=== PATIENT | male | born 1970 | race African-American/Black ===

== ENCOUNTER 2016-06-20 12:19 | Inpatient (IN) | payer OTHER ==
[2016-06-20 13:28] VITALS: BMI 43.4
[2016-06-20] MEDS ORDERED: ACETAMINOPHEN 325 MG TABLET (FP) PO PRN (13:54)
[2016-06-20] MEDS ORDERED: LOPERAMIDE HCL 2 MG CAPSULE PO PRN (13:54)
[2016-06-20] MEDS ORDERED: guaiFENesin/D-METHORPHAN HB 10 ML UNIT-DOSE CUPS PO PRN (13:54)
[2016-06-20] MEDS ORDERED: hydrOXYzine PAMOATE 25 MG CAPSULE (FP) PO PRN (13:54)
[2016-06-20] MEDS ORDERED: P-EPHED 60MG/TRIPROLIDI 2.5MG TABLET PO PRN (13:54)
[2016-06-20] MEDS ORDERED: MENTHOL/PHENOL 1 EACH UD MM PRN (13:54)
[2016-06-20] MEDS ORDERED: chlordiazePOXIDE HCL 25 MG CAPSULE PO PRN (13:54)
[2016-06-20] MEDS ORDERED: MAGNESIUM CITRATE 300 ML BOTTLE PO PRN (13:54)
[2016-06-20] MEDS ORDERED: MAGNESIUM HYDROX 2400MG/30ML ORAL SUSPENSION 30 ML CUP PO PRN (13:54)
[2016-06-20] MEDS ORDERED: MAG HYDROX/AL HYDROX/SIMETH 30 ML UNIT-DOSE CUP PO PRN (13:54)
[2016-06-20] MEDS ORDERED: IBUPROFEN 400 MG TABLET (FP) PO PRN (13:54)
[2016-06-20] MEDS ORDERED: ALBUTEROL SO4 6.7 GM HFA INHALER IH PRN (14:00)
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
--- NOTE | 2016-06-20 16:22 | CONSULT ---
[facility] Psychiatric Consult - Data Date of interview: 06/20/16 Admission source: [facility] Identifying data: This is 45 years old male with history of Bipolar disorder intoxicated with: Al;cohol, Cocaine and Cannabis Substance Abuse History: - Smoking Cessation. Smoking history: Current every day smoker. Have you smoked in the past 12 months: Yes. Aproximately how many cigarettes per day: 10. Cigars Per Day: 0. Hx Chewing Tobacco Use: No. Initiated information on smoking cessation: Yes. 'Breaking Loose' booklet given : 06/20/16. - Substance & Tx. History. Hx Alcohol Use: Yes. Hx Substance Use : Yes. Substance Use Type: Alcohol, Cocaine, Marijuana. Hx Substance Use Treatment: Yes. - Substances Abused. Alcohol. Route: Oral. Frequency: Daily. Amount used: 5 -24 OZ BEERS. Age of first use: 4. Date of Last Use: . Cocaine. Route: Smoking. Frequency: 1-2 times per week. Amount used: 1 GRAM. Age of first use: 23. Date of Last Use: 06/17/16. Marijuana/ Hashish. Route: Smoking. Frequency: Daily. Amount used: 1/2 OUNCE. Age of first use: 4. Date of Last Use: 06/19/16 Medical History: Obesity, GERD, HTN, Psychiatric History: Patient reports to carry Bipolar dsiorder with only psychiatric hospitalization on more then 10 years ago, reports currently stavble on: Seroquel 300mg po qhys. Risperdal 3mg po biud. Zoloft 50mg po bid Physical/Sexual Abuse/Trauma History: Denies Additional Comment: Seroquel 300mg po qhys. Risperdal 3mg po biud. Zoloft 50mg po bid Mental Status Exam - Mental Status Exam Alert and Oriented to: Person Cognitive Function: Fair Patient Appearance: Unkempt Mood: Anxious Affect: Mood Congruent Patient Behavior: Cooperative Speech Pattern: Appropriate Voice Loudness: Normal Thought Process: Goal Oriented Thought Disorder: Being Controlled Hallucinations: Denies Suicidal Ideation: Denies Homicidal Ideation: Denies Insight/Judgement: Fair Sleep: Difficulty falling asleep Appetite: Weight gain Muscle strength/Tone: Normal Gait/Station: Normal Additional Comments: Seroquel 300mg po qhys. Risperdal 3mg po biud. Zoloft 50mg po bid Psychiatric Findings - Problem List ([place] 1, 2,3) (1) Alcohol dependence Current Visit: Yes Status: Chronic Qualifiers: Substance use status: uncomplicated Qualified Code(s): F10.20 - Alcohol dependence, uncomplicated (2) Bipolar disorder Current Visit: Yes Status: Chronic Qualifiers: Active/Remission status: currently active Current episode severity: unspecified (3) Cocaine dependence Current Visit: Yes Status: Chronic Qualifiers: Substance use status: uncomplicated Qualified Code(s): F14.20 - Cocaine dependence, uncomplicated (4) Marijuana dependence Current Visit: Yes Status: Chronic (5) Nicotine dependence Current Visit: Yes Status: Chronic Qualifiers: Nicotine product type: cigarettes Substance use status: uncomplicated Qualified Code(s): F17.210 - Nicotine dependence, cigarettes, uncomplicated - Initial Treatment Plan Initial Treatment Plan: Seroquel 300mg po qhys. Risperdal 3mg po biud. Zoloft 50mg po bid
[2016-06-20] MEDS: chlordiazePOXIDE HCL 25 MG CAPSULE PO SCH ×2 (16:27→22:05)
[2016-06-20 17:51] LABS: URINE APPEARANCE CLEAR; URINE BILIRUBIN NEGATIVE (NEGATIVE); URINE BLOOD NEGATIVE (NEGATIVE); URINE COLOR LTYELLOW; URINE GLUCOSE (UA) NEGATIVE (NEGATIVE); URINE KETONE NEGATIVE (NEGATIVE); URINE LEUK ESTERASE NEGATIVE (NEGATIVE); URINE NITRITE NEGATIVE (NEGATIVE); URINE PROTEIN NEGATIVE (NEGATIVE); URINE UROBILINOGEN NEGATIVE E.U./dl (0.2-1.0)
[2016-06-20] MEDS: THIAMINE HCL 100 MG TABLET (FP) PO SCH (22:04)
[2016-06-20] MEDS: RANITIDINE HCL 150 MG TABLET (FP) PO SCH (22:05)
[2016-06-20] MEDS: SERTRALINE HCL 50 MG TABLET (FP) PO SCH (22:05)
[2016-06-20] MEDS: QUEtiapine FUMARATE 300 MG TABLET PO SCH (22:05)
[2016-06-20] MEDS: risperiDONE 1 MG TABLET (FP) PO SCH (22:05)
[2016-06-20] MEDS: NICOTINE POLACRILEX 4 MG GUM BUC PRN (22:08)
[2016-06-21] MEDS: chlordiazePOXIDE HCL 25 MG CAPSULE PO SCH ×4 (05:47→22:07)
[2016-06-21] MEDS: NICOTINE POLACRILEX 4 MG GUM BUC PRN ×3 (05:50→17:08)
[2016-06-21 10:13] LABS: MCH 27.3 pg (25.7-33.7); MCHC 32.4 g/dl (32.0-35.9); MEAN CELL VOLUME 84.3 fl (80-96); MEAN PLT VOLUME 8.6 fl (7.5-11.1); PLATELET COUNT 187 K/MM3 (134-434); RDW 15.6 % (11.9-15.9); WHITE BLOOD COUNT 12.2 K/mm3 (4.0-10.0)
[2016-06-21] MEDS: PRENATAL VITAMINS W/ FOLIC ACID TABLET (FP) PO SCH (10:14)
[2016-06-21] MEDS: RANITIDINE HCL 150 MG TABLET (FP) PO SCH ×2 (10:14→22:07)
[2016-06-21] MEDS: SERTRALINE HCL 50 MG TABLET (FP) PO SCH ×2 (10:14→22:54)
[2016-06-21] MEDS: risperiDONE 1 MG TABLET (FP) PO SCH ×2 (10:15→22:08)
[2016-06-21] MEDS: NICOTINE 21 MG/24 HOURS TOPICAL PATCH TD SCH (10:18)
[2016-06-21 10:36] LABS: ALBUMIN 3.8 g/dl (3.4-5.0); ALK PHOS 79 U/L (45-117); ANION GAP 6 (8-16); BILIRUBIN,TOTAL 0.3 mg/dL (0.2-1.0); CALCIUM 8.9 mg/dL (8.5-10.1); CO2 30 mmol/L (21-32); CREATININE 1.1 mg/dL (0.7-1.3); GLUCOSE,RANDOM 109 mg/dL (74-106); SGOT/AST 19 U/L (15-37); SGPT/ALT 37 U/L (12-78); TOT PROT 6.5 g/dl (6.4-8.2)
--- NOTE | 2016-06-21 11:15 | PN ---
[facility] CIWA - CIWA Score Nausea/Vomitin-Mild Nausea/No Vomiting Muscle Tremors: 4-Moderate,w/Arms Extend Anxiety: 3 Agitation: 1-Slight > Activity Paroxysmal Sweats: 3 Orientation: 0-Oriented Tacttile Disturbances: 2-Mild Itch/Numbness/Burn Auditory Disturbances: 0-None Visual Disturbances: 2-Mild Sensitivity Headache: 0-None Present CIWA-Ar Total Score: 16 BHS Progress Note (SOAP) Subjective: Sweating, Tremors. Objective: PT. A & O x 3, OBSERVED AMBULATING ON UNIT. 06/21/16 11:12 Vital Signs Temperature 97.7 F 06/21/16 09:32 Pulse Rate 80 06/21/16 09:32 Respiratory Rate 20 06/21/16 09:32 Blood Pressure 120/80 06/21/16 09:32 O2 Sat by Pulse Oximetry (%) Laboratory Last Values WBC 12.2 K/mm3 (4.0-10.0) H 06/21/16 06:00 RBC 5.15 M/mm3 (4.00-5.60) 06/21/16 06:00 Hgb 14.0 GM/dL (11.7-16.9) 06/21/16 06:00 Hct 43.4 % (35.4-49) 06/21/16 06:00 MCV 84.3 fl (80-96) 06/21/16 06:00 MCHC 32.4 g/dl (32.0-35.9) 06/21/16 06:00 RDW 15.6 % (11.9-15.9) 06/21/16 06:00 Plt Count 187 K/MM3 (134-434) 06/21/16 06:00 MPV 8.6 fl (7.5-11.1) 06/21/16 06:00 Sodium 144 mmol/L (136-145) 06/21/16 06:00 Potassium 3.9 mmol/L (3.5-5.1) 06/21/16 06:00 Chloride 108 mmol/L (98-107) H 06/21/16 06:00 Carbon Dioxide 30 mmol/L (21-32) D 06/21/16 06:00 Anion Gap 6 (8-16) L 06/21/16 06:00 BUN 16 mg/dL (7-18) 06/21/16 06:00 Creatinine 1.1 mg/dL (0.7-1.3) 06/21/16 06:00 Creat Clearance w eGFR > 60 (>60) 06/21/16 06:00 Random Glucose 109 mg/dL (74-106) H 06/21/16 06:00 Calcium 8.9 mg/dL (8.5-10.1) 06/21/16 06:00 Total Bilirubin 0.3 mg/dL (0.2-1.0) 06/21/16 06:00 AST 19 U/L (15-37) 06/21/16 06:00 ALT 37 U/L (12-78) 06/21/16 06:00 Alkaline Phosphatase 79 U/L (45-117) 06/21/16 06:00 Total Protein 6.5 g/dl (6.4-8.2) 06/21/16 06:00 Albumin 3.8 g/dl (3.4-5.0) 06/21/16 06:00 Urine Color Ltyellow 06/20/16 17:00 Urine Appearance Clear 06/20/16 17:00 Urine pH 5.0 (5.0-8.0) 06/20/16 17:00 Ur Specific [place] 1.013 (1.001-1.035) 06/20/16 17:00 Urine Protein Negative (NEGATIVE) 06/20/16 17:00 Urine Glucose (UA) Negative (NEGATIVE) 06/20/16 17:00 Urine Ketones Negative (NEGATIVE) 06/20/16 17:00 Urine Blood Negative (NEGATIVE) 06/20/16 17:00 Urine Nitrite Negative (NEGATIVE) 06/20/16 17:00 Urine Bilirubin Negative (NEGATIVE) 06/20/16 17:00 Urine Urobilinogen Negative E.U./dl (0.2-1.0) 06/20/16 17:00 Ur Leukocyte Esterase Negative (NEGATIVE) 06/20/16 17:00 LABS NOTED. Assessment: 06/21/16 11:14 WITHDRAWAL SYMPTOMS. Plan: CONTINUE DETOX.
[2016-06-21] MEDS ORDERED: HYDROCHLOROTHIAZIDE 12.5 MG CAPSULE (FP) PO SCH (12:00)
--- NOTE | 2016-06-21 15:22 | EKG ---
Test Reason : Blood Pressure : / mmHG Vent. Rate : 063 BPM Atrial Rate : 063 BPM P-R Int : 162 ms QRS Dur : 086 ms QT Int : 392 ms P-R-T Axes : 066 030 042 degrees QTc Int : 401 ms NORMAL SINUS RHYTHM NO PREVIOUS ECGS AVAILABLE POOR DATA QUALITY, INTERPRETATION MAY BE ADVERSELY AFFECTED Confirmed by LUX UPTON MD ([id number]) on 06/21/2016 3:21:54 PM Referred By: Confirmed By:LUX UPTON MD
[2016-06-21] MEDS: THIAMINE HCL 100 MG TABLET (FP) PO SCH (22:07)
[2016-06-21] MEDS: QUEtiapine FUMARATE 300 MG TABLET PO SCH (22:08)
[2016-06-21] MEDS: diphenhydrAMINE HCL 50 MG CAPSULE PO PRN (22:09)
[2016-06-22] MEDS: chlordiazePOXIDE HCL 25 MG CAPSULE PO SCH ×2 (05:34→10:09)
[2016-06-22] MEDS: NICOTINE POLACRILEX 4 MG GUM BUC PRN ×5 (05:36→21:40)
[2016-06-22] MEDS: PRENATAL VITAMINS W/ FOLIC ACID TABLET (FP) PO SCH (10:09)
[2016-06-22] MEDS: SERTRALINE HCL 50 MG TABLET (FP) PO SCH ×2 (10:09→22:03)
[2016-06-22] MEDS: RANITIDINE HCL 150 MG TABLET (FP) PO SCH ×2 (10:10→22:04)
[2016-06-22] MEDS: risperiDONE 1 MG TABLET (FP) PO SCH ×2 (10:10→22:04)
[2016-06-22] MEDS: NICOTINE 21 MG/24 HOURS TOPICAL PATCH TD SCH (10:10)
--- NOTE | 2016-06-22 11:44 | PN ---
S CIWA - CIWA Score Nausea/Vomitin-No Nausea/No Vomiting Muscle Tremors: 3 Anxiety: 4-Mod. Anxious/Guarded Agitation: 4-Moderately Restless (pacing) Paroxysmal Sweats: 3 Orientation: 0-Oriented Tacttile Disturbances: 0-None Auditory Disturbances: 0-None Visual Disturbances: 0-None Headache: 0-None Present CIWA-Ar Total Score: 14 BHS Progress Note (SOAP) Subjective: sweating,anxiety,tremors,interrupted sleep,restless Objective: 06/22/16 11:44 Vital Signs - 8 hr 06/22/16 06/22/16 06/22/16 06:16 07:49 10:29 Temperature 97.4 F L 95.6 F L Pulse Rate 87 85 88 Respiratory 20 20 Rate Blood Pressure 166/105 143/100 142/92 Laboratory Tests 06/20/16 06/20/16 06/21/16 14:00 17:00 06:00 WBC 12.2 H RBC 5.15 Hgb 14.0 Hct 43.4 MCV 84.3 MCHC 32.4 RDW 15.6 Plt Count 187 MPV 8.6 Sodium Potassium Chloride Carbon Dioxide Anion Gap BUN Creatinine Creat Clearance w eGFR Random Glucose Calcium Total Bilirubin AST ALT Alkaline Phosphatase Total Protein Albumin Urine Color Ltyellow Urine Appearance Clear Urine pH 5.0 Ur Specific [place] 1.013 Urine Protein Negative Urine Glucose (UA) Negative Urine Ketones Negative Urine Blood Negative Urine Nitrite Negative Urine Bilirubin Negative Urine Urobilinogen Negative Ur Leukocyte Esterase Negative RPR Titer Hepatitis C Antibody 0.2 06/21/16 06/21/16 06:00 06:00 WBC RBC Hgb Hct MCV MCHC RDW Plt Count MPV Sodium 144 Potassium 3.9 Chloride 108 H Carbon Dioxide 30 D Anion Gap 6 L BUN 16 Creatinine 1.1 Creat Clearance w eGFR > 60 Random Glucose 109 H Calcium 8.9 Total Bilirubin 0.3 AST 19 ALT 37 Alkaline Phosphatase 79 Total Protein 6.5 Albumin 3.8 Urine Color Urine Appearance Urine pH Ur Specific [place] Urine Protein Urine Glucose (UA) Urine Ketones Urine Blood Urine Nitrite Urine Bilirubin Urine Urobilinogen Ur Leukocyte Esterase RPR Titer Nonreactive Hepatitis C Antibody labs noted Assessment: 06/22/16 11:44 withdrawal sx. Plan: continue detox
[2016-06-22] MEDS: LISINOPRIL 10 MG TABLET (FP) PO SCH ×2 (12:37→22:04)
[2016-06-22] MEDS: TRIAMTERENE AND HCTZ - 37.5 MG/25 MG CAPSULE PO SCH (12:37)
[2016-06-22] MEDS: chlordiazePOXIDE 5 MG CAPSULE PO SCH ×2 (17:20→22:03)
[2016-06-22] MEDS: diphenhydrAMINE HCL 50 MG CAPSULE PO PRN (22:04)
[2016-06-22] MEDS: QUEtiapine FUMARATE 300 MG TABLET PO SCH (22:04)
[2016-06-22] MEDS: THIAMINE HCL 100 MG TABLET (FP) PO SCH (22:37)
[2016-06-23] MEDS: chlordiazePOXIDE 5 MG CAPSULE PO SCH ×2 (05:27→10:06)
[2016-06-23] MEDS: NICOTINE POLACRILEX 4 MG GUM BUC PRN ×3 (05:29→22:14)
[2016-06-23] MEDS: PRENATAL VITAMINS W/ FOLIC ACID TABLET (FP) PO SCH (10:05)
[2016-06-23] MEDS: TRIAMTERENE AND HCTZ - 37.5 MG/25 MG CAPSULE PO SCH (10:05)
[2016-06-23] MEDS: NICOTINE 21 MG/24 HOURS TOPICAL PATCH TD SCH (10:06)
[2016-06-23] MEDS: risperiDONE 1 MG TABLET (FP) PO SCH ×2 (10:06→22:13)
[2016-06-23] MEDS: RANITIDINE HCL 150 MG TABLET (FP) PO SCH ×2 (10:06→22:12)
[2016-06-23] MEDS: LISINOPRIL 10 MG TABLET (FP) PO SCH ×2 (10:06→22:12)
[2016-06-23] MEDS: SERTRALINE HCL 50 MG TABLET (FP) PO SCH ×2 (10:07→22:13)
--- NOTE | 2016-06-23 14:11 | PN ---
BHS Progress Note (SOAP) Subjective: Anxious, sweating, restless Objective: 06/23/16 14:08 Last Vital Signs Temp Pulse Resp BP Pulse Ox 97 F L 74 20 124/78 06/23/16 13:33 06/23/16 13:33 06/23/16 13:33 06/23/16 13:33 Laboratory Tests 06/20/16 06/20/16 06/21/16 14:00 17:00 06:00 WBC 12.2 H RBC 5.15 Hgb 14.0 Hct 43.4 MCV 84.3 MCHC 32.4 RDW 15.6 Plt Count 187 MPV 8.6 Sodium Potassium Chloride Carbon Dioxide Anion Gap BUN Creatinine Creat Clearance w eGFR Random Glucose Calcium Total Bilirubin AST ALT Alkaline Phosphatase Total Protein Albumin Urine Color Ltyellow Urine Appearance Clear Urine pH 5.0 Ur Specific [place] 1.013 Urine Protein Negative Urine Glucose (UA) Negative Urine Ketones Negative Urine Blood Negative Urine Nitrite Negative Urine Bilirubin Negative Urine Urobilinogen Negative Ur Leukocyte Esterase Negative RPR Titer Hepatitis C Antibody 0.2 06/21/16 06/21/16 06:00 06:00 WBC RBC Hgb Hct MCV MCHC RDW Plt Count MPV Sodium 144 Potassium 3.9 Chloride 108 H Carbon Dioxide 30 D Anion Gap 6 L BUN 16 Creatinine 1.1 Creat Clearance w eGFR > 60 Random Glucose 109 H Calcium 8.9 Total Bilirubin 0.3 AST 19 ALT 37 Alkaline Phosphatase 79 Total Protein 6.5 Albumin 3.8 Urine Color Urine Appearance Urine pH Ur Specific [place] Urine Protein Urine Glucose (UA) Urine Ketones Urine Blood Urine Nitrite Urine Bilirubin Urine Urobilinogen Ur Leukocyte Esterase RPR Titer Nonreactive Hepatitis C Antibody Labs noted: wbc 12.2 Assessment: 06/23/16 14:10 Withdrawal symptoms Noted with leukocytosis Plan: Continue detox Leukocytosis: asymptomatic, repeat cbc
[2016-06-23] MEDS: chlordiazePOXIDE HCL 10 MG CAPSULE PO SCH ×2 (17:05→22:12)
[2016-06-23] MEDS ORDERED: CYCLOBENZAPRINE HCL 10 MG TABLET (FP) PO ONE (18:24)
[2016-06-23] MEDS ORDERED: CYCLOBENZAPRINE HCL 10 MG TABLET (FP) PO PRN (18:24)
[2016-06-23] MEDS: THIAMINE HCL 100 MG TABLET (FP) PO SCH (22:12)
[2016-06-23] MEDS: QUEtiapine FUMARATE 300 MG TABLET PO SCH (22:13)
[2016-06-23] MEDS: diphenhydrAMINE HCL 50 MG CAPSULE PO PRN (22:14)
[2016-06-24] MEDS: chlordiazePOXIDE HCL 10 MG CAPSULE PO SCH ×2 (05:52→10:03)
[2016-06-24] MEDS: NICOTINE POLACRILEX 4 MG GUM BUC PRN ×2 (05:53→10:03)
[2016-06-24 06:37] VITALS: BP 113/76; PULSE 105; TEMP 96.6
--- NOTE | 2016-06-24 08:48 | DS ---
[facility] Detox Discharge Summary Admission Date: 06/20/16 Discharge Date: 06/24/16 - History Present History: Alcohol Dependence Pertinent Past History: Asthma HTN - Physical Exam Results Vital Signs: Vital Signs Temperature 96.6 F L 06/24/16 06:36 Pulse Rate 105 H 06/24/16 06:36 Respiratory Rate 18 06/24/16 06:36 Blood Pressure 113/76 06/24/16 06:36 O2 Sat by Pulse Oximetry (%) Pertinent Admission Physical Exam Findings: Withdrawal sx. Laboratory Last Values WBC 12.2 K/mm3 (4.0-10.0) H 06/21/16 06:00 RBC 5.15 M/mm3 (4.00-5.60) 06/21/16 06:00 Hgb 14.0 GM/dL (11.7-16.9) 06/21/16 06:00 Hct 43.4 % (35.4-49) 06/21/16 06:00 MCV 84.3 fl (80-96) 06/21/16 06:00 MCHC 32.4 g/dl (32.0-35.9) 06/21/16 06:00 RDW 15.6 % (11.9-15.9) 06/21/16 06:00 Plt Count 187 K/MM3 (134-434) 06/21/16 06:00 MPV 8.6 fl (7.5-11.1) 06/21/16 06:00 Sodium 144 mmol/L (136-145) 06/21/16 06:00 Potassium 3.9 mmol/L (3.5-5.1) 06/21/16 06:00 Chloride 108 mmol/L (98-107) H 06/21/16 06:00 Carbon Dioxide 30 mmol/L (21-32) D 06/21/16 06:00 Anion Gap 6 (8-16) L 06/21/16 06:00 BUN 16 mg/dL (7-18) 06/21/16 06:00 Creatinine 1.1 mg/dL (0.7-1.3) 06/21/16 06:00 Creat Clearance w eGFR > 60 (>60) 06/21/16 06:00 Random Glucose 109 mg/dL (74-106) H 06/21/16 06:00 Calcium 8.9 mg/dL (8.5-10.1) 06/21/16 06:00 Total Bilirubin 0.3 mg/dL (0.2-1.0) 06/21/16 06:00 AST 19 U/L (15-37) 06/21/16 06:00 ALT 37 U/L (12-78) 06/21/16 06:00 Alkaline Phosphatase 79 U/L (45-117) 06/21/16 06:00 Total Protein 6.5 g/dl (6.4-8.2) 06/21/16 06:00 Albumin 3.8 g/dl (3.4-5.0) 06/21/16 06:00 Urine Color Ltyellow 06/20/16 17:00 Urine Appearance Clear 06/20/16 17:00 Urine pH 5.0 (5.0-8.0) 06/20/16 17:00 Ur Specific [place] 1.013 (1.001-1.035) 06/20/16 17:00 Urine Protein Negative (NEGATIVE) 06/20/16 17:00 Urine Glucose (UA) Negative (NEGATIVE) 06/20/16 17:00 Urine Ketones Negative (NEGATIVE) 06/20/16 17:00 Urine Blood Negative (NEGATIVE) 06/20/16 17:00 Urine Nitrite Negative (NEGATIVE) 06/20/16 17:00 Urine Bilirubin Negative (NEGATIVE) 06/20/16 17:00 Urine Urobilinogen Negative E.U./dl (0.2-1.0) 06/20/16 17:00 Ur Leukocyte Esterase Negative (NEGATIVE) 06/20/16 17:00 RPR Titer Nonreactive (NONREACTIVE) 06/21/16 06:00 Hepatitis C Antibody 0.2 s/co ratio (0.0-0.9) 06/20/16 14:00 Labs noted - Treatment Hospital Course: Detox Protocol Followed, Detoxed Safely, Responded well, Discharged Condition Good, Rehab Referral Accepted Patient has Accepted a Rehab Referral to: [facility] - Medication Discharge Medications: Ambulatory Orders Albuterol Sulfate Inhaler - [Ventolin HFA Inhaler -] 2 inh IH Q4H PRN #1 canister 09/08/13 Risperidone [Risperdal] 3 mg PO BID #60 tablet 09/08/13 Sertraline HCl [Zoloft -] 50 mg PO BID #60 tablet 09/08/13 Quetiapine Fumarate [Seroquel -] 300 mg PO HS 06/20/16 Quetiapine Fumarate [Seroquel -] 300 mg PO HS #30 tab 06/20/16 Risperidone [Risperdal -] 3 mg PO BID #60 tablet 06/20/16 Sertraline HCl [Zoloft -] 50 mg PO BID #60 tablet 06/20/16 Lisinopril [Prinivil] 20 mg PO DAILY 06/24/16 - Diagnosis (1) Asthma Current Visit: Yes Status: Chronic Qualifiers: Asthma severity: mild intermittent (2) GERD (gastroesophageal reflux disease) Current Visit: Yes Status: Chronic Qualifiers: Esophagitis presence: without esophagitis Qualified Code(s): K21.9 - Gastro-esophageal reflux disease without esophagitis (3) Morbid obesity Current Visit: Yes Status: Chronic Qualifiers: Obesity type: unspecified obesity type Qualified Code(s): E66.01 - Morbid (severe) obesity due to excess calories (4) Nicotine dependence Current Visit: Yes Status: Chronic Qualifiers: Nicotine product type: cigarettes Substance use status: uncomplicated Qualified Code(s): F17.210 - Nicotine dependence, cigarettes, uncomplicated (5) Hypertension Current Visit: No Status: Acute (6) Alcohol dependence with uncomplicated withdrawal Current Visit: Yes Status: Acute (7) Bipolar disorder Current Visit: Yes Status: Chronic Qualifiers: Active/Remission status: currently active Current episode severity: unspecified - AMA Did Patient Leave Against Medical Advice: No
[2016-06-24] MEDS: LISINOPRIL 10 MG TABLET (FP) PO SCH (10:01)
[2016-06-24] MEDS: PRENATAL VITAMINS W/ FOLIC ACID TABLET (FP) PO SCH (10:01)
[2016-06-24] MEDS: TRIAMTERENE AND HCTZ - 37.5 MG/25 MG CAPSULE PO SCH (10:01)
[2016-06-24] MEDS: RANITIDINE HCL 150 MG TABLET (FP) PO SCH (10:02)
[2016-06-24] MEDS: risperiDONE 1 MG TABLET (FP) PO SCH (10:02)
[2016-06-24] MEDS: SERTRALINE HCL 50 MG TABLET (FP) PO SCH (10:02)
[2016-06-24] MEDS: NICOTINE 21 MG/24 HOURS TOPICAL PATCH TD SCH (10:02)
[2016-06-24 10:41] LABS: MCH 27.1 pg (25.7-33.7); MCHC 32.5 g/dl (32.0-35.9); MEAN CELL VOLUME 83.4 fl (80-96); MEAN PLT VOLUME 8.3 fl (7.5-11.1); PLATELET COUNT 190 K/MM3 (134-434); RDW 15.5 % (11.9-15.9); WHITE BLOOD COUNT 11.2 K/mm3 (4.0-10.0)
[2016-06-24 12:27] LABS: METAMYELOCYTE 1 % (0-2); PLATELET ESTIMATE ADEQUATE (NORMAL)
== END 2016-06-24 11:22 | disposition home or self-care (01) | DRG 774 ==
LOC: YASAS 12:19 → Y3N 14:47
PROVIDERS: ADMIT Internal Medicine; ATTEND Internal Medicine
PROC: HZ2ZZZZ Detoxification Services for Substance Abuse Treatment (ICD-10-PCS; principal; 2016-06-20)
DX: F10.230 Alcohol dependence with withdrawal, uncomplicated (principal); F14.20 Cocaine dependence, uncomplicated; F12.20 Cannabis dependence, uncomplicated; F17.210 Nicotine dependence, cigarettes, uncomplicated; F31.9 Bipolar disorder, unspecified; J45.909 Unspecified asthma, uncomplicated; K21.9 Gastro-esophageal reflux disease without esophagitis; E66.01 Morbid (severe) obesity due to excess calories; Z68.41 Body mass index [BMI] 40.0-44.9, adult; I10 Essential (primary) hypertension; Z91.5 Personal history of self-harm
CPT/HCPCS: 36415; 80053; 81003; 85025; 85027; 86593; 93005; 93010; J2794